=== PATIENT | male | born 1975 | race Hispanic/Latino ===

== ENCOUNTER 2019-01-22 12:48 | Emergency (ER) | payer SELFPAY ==
[~2019-01-22] VITALS: Ht 157.5 cm; Wt 56.8 kg
[2019-01-22] MEDS ORDERED: BACTRIM DS1 TAB PO (13:24)
[2019-01-22] MEDS ORDERED: CEPHALEXIN500 M1 PO (13:24)
[2019-01-22 13:38] VITALS: BP 100/70
== END 2019-01-22 13:39 | disposition home or self-care (01) | DRG 603 ==
LOC: ED 12:48
PROC: 0H9GXZZ Drainage of Left Hand Skin, External Approach (ICD-10-PCS; principal; 2019-01-22)
DX: L03.012 Cellulitis of left finger (principal); F17.210 Nicotine dependence, cigarettes, uncomplicated; B95.61 Methicillin susceptible Staphylococcus aureus infection as the cause of diseases classified elsewhere

== ENCOUNTER 2019-07-24 13:31 | Emergency (ER) | payer SELFPAY ==
[~2019-07-24] VITALS: Ht 157.5 cm; Wt 70.0 kg
[~2019-07-24 13:31] MED LIST: BACTRIM DS1 TAB PO; CEPHALEXIN500 M1 PO
[2019-07-24 14:16] LABS: HEMOGLOBIN 14.3 g/dl (14.0-18.0); IMMATURE GRANULOCYTES 0.2 % (0.0-5.0); MEAN CELL VOLUME 92.1 fL CALC (80.0-100.0); MEAN CORPUSCULAR HGB 30.6 pG CALC (26.0-32.0); MEAN CORPUSCULAR HGB CONC 33.3 g/L CALC (32.0-36.0); NEUT# 4.12 thou/uL (1.82-7.42); RED BLOOD COUNT 4.67 mill/uL (4.70-6.10); RED CELL DISTRI WIDTH 13.7 % (11.5-15.5)
[2019-07-24 14:29] LABS: ALBUMIN 4.4 g/dL (3.2-5.0); ALKALINE PHOSPHATASE 53 u/l (38-126); ANION GAP 15 (6-22 (CALC)); BILIRUBIN, TOTAL 0.4 mg/dL (0.0-1.4); BUN 15 mg/dL (9-20); BUN/CREATININE RATIO 21 (12-20 (CALC)); CARBON DIOXIDE 20 mmol/l (22-30); CHLORIDE 106 mmol/l (95-108); CREATININE 0.7 mg/dL (0.7-1.3); GFR > 60 ML/MIN (>=60 (CALC)); GFR FOR AFR.AMER. > 60 ML/MIN (>=60 (CALC)); POTASSIUM 4.2 mmol/l (3.5-5.1); SGOT/AST 26 u/l (17-59); SODIUM 137 mmol/l (137-146); TOTAL PROTEIN 7.4 g/dL (6.3-8.2)
[2019-07-24] MEDS ORDERED: FAMCICLOVIR500 MG PO (15:03)
[2019-07-24] MEDS ORDERED: CIPROFLOXACN500 MG PO (15:03)
[2019-07-24] MEDS ORDERED: MEDDOSEPAK PO (15:03)
[2019-07-24 15:18] VITALS: BP 94/53
== END 2019-07-24 15:28 | disposition home or self-care (01) | DRG 74 ==
LOC: ED 13:31
PROVIDERS: Emergency Medicine
DX: G51.0 Bell's palsy (principal)